=== PATIENT | male | born 1965 | race African-American/Black ===

== ENCOUNTER 2017-01-15 08:29 | Day surgery (SDC) | payer MEDICARE, MEDICAID ==
[~2017-01-15] VITALS: Ht 183 cm; Wt 111.0 kg
[2017-01-15] VITALS (10 sets, daily range): BP systolic 101–122; BP diastolic 56–86; PULSE 40–53; TEMP 97.5
[2017-01-15 09:27] LABS: HEMOGLOBIN 12.3 g/dl (13.5-18.0); MEAN CELL VOLUME 86 fl (80.0-100.0); MEAN CORPUSCULAR HEMOGLOBIN 27 pg (27.0-31.0); MEAN CORPUSCULAR HGB CONC 32 g/dl (33.0-37.0); MEAN PLATELET VOLUME 9.5 fl (7.4-10.4); PLATELET COUNT 203 K/mm3 (130-400); RED BLOOD COUNT 4.53 M/mm3 (4.20-5.60); WHITE BLOOD COUNT 5.9 K/mm3 (4.8-10.8)
[2017-01-15 09:37] LABS: CALCIUM 9.4 mg/dL (8.4-10.2); CREATININE, serum 1.46 mg/dL (0.66-1.25); POTASSIUM 4.5 mmol/L (3.4-5.0)
[2017-01-15 09:48] LABS: INR 1.2 (0.8-3.0); PROTHROMBIN TIME 12.9 SECONDS (9.7-12.8)
[2017-01-15] MEDS ORDERED: PRINIVIL20 MG PO (09:49)
[2017-01-15] MEDS ORDERED: CARDIZEM CD 12120 MG PO (09:49)
[2017-01-15] MEDS ORDERED: ELIQUIS 5MG PO (09:50)
[2017-01-15] MEDS ORDERED: LOPRESSOR100 MG PO (09:50)
[2017-01-15] MEDS ORDERED: DILAUDID 4MG TAB4 MG PO (09:51)
[2017-01-15] MEDS ORDERED: CARDENE 20MG CA20 M1 PO (13:58)
== END 2017-01-15 17:10 | disposition home or self-care (01) ==
LOC: COL.CAR 08:29
PROVIDERS: Internal Medicine Interventional Cardiology
DX: R94.39 Abnormal result of other cardiovascular function study (principal); I20.9 Angina pectoris, unspecified; I49.3 Ventricular premature depolarization; I10 Essential (primary) hypertension; I48.2 Chronic atrial fibrillation; E78.5 Hyperlipidemia, unspecified; Z79.01 Long term (current) use of anticoagulants; Z87.891 Personal history of nicotine dependence; Z82.49 Family history of ischemic heart disease and other diseases of the circulatory system
CPT/HCPCS: J2250; J3010

== ENCOUNTER 2021-06-03 13:00 | Emergency (ER) | payer MEDICARE, MEDICAID ==
[~2021-06-03] VITALS: Ht 182.9 cm; Wt 128.2 kg
[~2021-06-03 13:00] MED LIST: CARDENE 20MG CA20 M1 PO; CARDIZEM CD 12120 MG PO; DILAUDID 4MG TAB4 MG PO; ELIQUIS 5MG PO; LOPRESSOR100 MG PO; PRINIVIL20 MG PO
[2021-06-03 13:26] VITALS: TEMP 97.9
[2021-06-03 14:46] LABS: BASO % 0.5 % (0.0-2.0); EOS # 0.2 K/mm3 (0.0-0.7); EOS % 2.6 % (0-4.0); GRAN # 3.1 K/mm3 (1.4-6.5); GRAN % 52.9 % (42.2-75.2); HEMATOCRIT 41.9 % (42.0-52.0); HEMOGLOBIN 13.2 g/dl (13.5-18.0); LYMPH % 34.1 % (20.0-51.0); MEAN CELL VOLUME 85 fl (80.0-100.0); MEAN CORPUSCULAR HEMOGLOBIN 27 pg (27.0-31.0); MEAN CORPUSCULAR HGB CONC 32 g/dl (33.0-37.0); MEAN PLATELET VOLUME 10.8 fl (7.4-10.4); MONO # 0.6 K/mm3 (0.1-0.6); MONO % 9.6 % (1.7-9.3); PLATELET COUNT 192 K/mm3 (130-400); RED BLOOD COUNT 4.93 M/mm3 (4.20-5.60); REDCELL DISTRIBUTION WIDTH-CV 13.2 % (11.5-14.5)
[2021-06-03 15:02] LABS: BILIRUBIN,TOTAL 1.2 mg/dL (0.2-1.2); CALCIUM 9.3 mg/dL (8.4-10.2); CREATININE, serum 1.63 mg/dL (0.72-1.25); POTASSIUM 4.3 mmol/L (3.5-4.5); TOTAL PROTEIN 7.8 gm/dL (6.2-8.1)
[2021-06-03 15:08] LABS: TROPONIN-I 0.012 ng/mL (0.00-0.033)
[2021-06-03 16:58] VITALS: BP 142/103; PULSE 72
== END 2021-06-03 17:14 | disposition home or self-care (01) ==
LOC: EDBD 13:00 → COL.ER 13:00
PROVIDERS: Physician Assistant
DX: I80.8 Phlebitis and thrombophlebitis of other sites (principal); R06.02 Shortness of breath; I10 Essential (primary) hypertension; I48.91 Unspecified atrial fibrillation; Z86.711 Personal history of pulmonary embolism; Z86.718 Personal history of other venous thrombosis and embolism; Z79.01 Long term (current) use of anticoagulants; Z79.899 Other long term (current) drug therapy
CPT/HCPCS: Q9967

== ENCOUNTER 2023-03-12 08:55 | Day surgery (SDC) | payer MEDICARE, MEDICAID ==
[~2023-03-12] VITALS: Ht 182.9 cm; Wt 121.7 kg
[2023-03-12 09:24] VITALS: BP 156/109; PULSE 72; TEMP 98.6
[2023-03-12] MEDS ORDERED: CRESTOR5 MG PO (09:33)
[2023-03-12] MEDS ORDERED: COZAAR 50MG50 MG/TAB PO (09:33)
[2023-03-12] MEDS ORDERED: TOPROL XL100 MG (09:35)
[2023-03-12] MEDS ORDERED: NORVASC 5MG5 MG/TAB PO (09:37)
[2023-03-12] MEDS ORDERED: SYNTHROID0.075 MG/T PO (09:38)
[2023-03-12] MEDS ORDERED: RANEXA1000 MG PO (09:38)
[2023-03-12] MEDS ORDERED: NITROSTAT0.4 MG/TAB SL (09:40)
--- NOTE | 2023-03-12 10:01 | NUR ---
PATIENT AMBULATED TO BAY 4 WITH STEADY GAIT AND USE OF A CANE. ALERT AND ORIENTED X4. PATIENT STATED UNDERSTANDING OF THE PROCEDURE. CONSENTS SIGNED. ASSESSMENT COMPLETED. 20G IV STARTED IN RIGHT AC BY KATE MENENDEZ. LR INFUSING WITHOUT DIFFICULTIES. WARM BLANKET PROVIDED. B/P 156/109. PATIENT STATED HE DID NOT TAKE ANY OF HIS B/P MEDS THIS AM. ELIZA OWENS NOTIFIED. NO NEW ORDERS RECEIVED. RESTING IN RECLINER. FAMILY AT SIDE. CALL LIGHT IN REACH.
[2023-03-12 11:07] VITALS: BP 136/100; PULSE 81; TEMP 97.7
[2023-03-12 11:15] VITALS: BP 118/66; PULSE 77
[2023-03-12 11:30] VITALS: BP 143/113; PULSE 67
--- NOTE | 2023-03-12 11:38 | NUR ---
1107- PATIENT RETURNS TO [facility] VIA CART. PT AWAKE AND ALERT. RESPIRATIONS UNLABORED. AMBULATED TO RECLINER CHAIR WITH 2:1 SBA. PT DENIES NAUSEA OR ABDOMINAL PAIN. HOOKED UP TO MONITOR AND VS OBTAINED. CALL LIGHT AT SIDE AND FAMILY PRESENT. 1115- PATIENT TOLERATING PEPSI AND WARM MUFFIN WITHOUT NAUSEA. 1119- DR. DAVID IN ROOM SPEAKING WITH PATIENT. 1124- D/C INSTRUCTIONS REVIEWED WITH PATIENT. PT VERBALIZED UNDERSTANDING AND A COPY OF INSTRUCTIONS PROVIDED IN D/C FOLDER. 1132- PATIENT DRESSES SELF. 1138- PATIENT DISCHARGED FROM UNIT VIA W/C TO A PERSONAL VEHICLE. PT LEFT HOSPITAL IN STABLE CONDITION.
== END 2023-03-12 11:38 | disposition home or self-care (01) ==
LOC: SDCO 08:55 → EDBD 10:45 → SDCO 10:45
DX: K92.1 Melena (principal); K64.1 Second degree hemorrhoids; F17.290 Nicotine dependence, other tobacco product, uncomplicated
CPT/HCPCS: J2704; J7120